=== PATIENT | male | born 1990 | race Caucasian/White ===

== ENCOUNTER → 2020-12-11 13:27 | Outpatient (CLI) | payer BC, SELFPAY | PROVIDERS: PCP Family Medicine; Visit Provider Family Medicine | DX: G47.33 Obstructive sleep apnea (adult) (pediatric) (principal); R06.83 Snoring; R53.83 Other fatigue; E66.9 Obesity, unspecified | CPT/HCPCS: G0399 ==

== ENCOUNTER → 2022-10-11 10:46 | Outpatient (CLI) | payer BC, SELFPAY | PROVIDERS: PCP Family Medicine; Visit Provider Nurse Practitioner Family | DX: M54.2 Cervicalgia (principal) ==

== ENCOUNTER 2022-11-10 09:00 | Outpatient (RCR) | payer BC, SELFPAY ==
--- NOTE | 2022-10-11 10:49 | XR_ITS ---
FINAL REPORT CLINICAL HISTORY: neck pain,,headaches FINDINGS: CERVICAL SPINE Six views including flexion and extension views were obtained. There is no acute fracture. There is no malalignment. There is no abnormal movement with flexion or extension. There is minimal disc degeneration at C5-6 and C6-7 with small osteophytes. There is no evidence of neural foraminal narrowing. There is no soft tissue abnormality. IMPRESSION: Minimal disc degeneration at C5-6 and C6-7. No abnormal movement with flexion or extension. Reviewed, Interpreted and Dictated by Erik Lawson III, MD Transcribed by Candi Ochoa Authenticated and [facility]
--- NOTE | 2022-11-10 10:00 | HMH.RHREAS ---
Rehab Reassessment Rehab OP Re-assessment Start: 11/10/22 09:53 Freq: Status: Active Protocol: Document 11/10/22 09:53 FUNMILAYO (Rec: 11/10/22 10:00 FUNMILAYO [id number]) E-signed By Fish Lechuga, PT Rehab Re-assessment Subjective Subjective Patient reports 50% improvement since start of care. Objective Objective Notes Cervical AROM: flx 52; ext 48; SBr 44; SBl 42; Rr 40: Rl 44 MMT WNL Pain: 1/10 today; 6/10 at worst over past week Assessment Progress Assessment Progressing as Expected Assessment Notes Patient had some good relief of headaches with introduction of dry needling until last week. Patient experienced increase frequency of headaches. He would benefit from continuing with skilled PT services in order to address all functional limitations associated with headaches/migraines. Patient goals met STG 2 Goals Not Met All others Revised Goals NA Plan Plan Continue with current POC. Frequency of Therapy 2 Duration of therapy 4-6 Time and Billing Re-Eval Time 15 Re-Eval Billing Units 1 PHYSICIAN CERTIFICATION: I certify the specified therapy services for Josue Anita Moura are required, authorized, and reviewed every 30 days.
== END 2022-11-10 09:05 | disposition home or self-care (01) ==
LOC: PT 09:00
PROVIDERS: PCP Family Medicine; Visit Provider Nurse Practitioner Family
DX: G43.909 Migraine, unspecified, not intractable, without status migrainosus (principal); G44.209 Tension-type headache, unspecified, not intractable; G44.86 Cervicogenic headache; M54.2 Cervicalgia
CPT/HCPCS: 20560; 20561; 72052; 97010; 97014; 97110; 97163; 97164; G0283

== ENCOUNTER → 2023-08-02 15:57 | Outpatient (CLI) | payer BC, SELFPAY | LOC: SL 16:00 | PROVIDERS: PCP Family Medicine; Visit Provider Nurse Practitioner Family | DX: G47.33 Obstructive sleep apnea (adult) (pediatric) (principal); E66.01 Morbid (severe) obesity due to excess calories; Z68.41 Body mass index [BMI] 40.0-44.9, adult | CPT/HCPCS: G0399 ==

== ENCOUNTER 2024-07-20 12:08 | Emergency (ER) | payer BC, SELFPAY ==
[2024-07-20] VITALS (9 sets, daily range): BP systolic 127–156; BP diastolic 86–108; PULSE 56–87; RESP 16–18; TEMP 36.6–36.8; O2SAT 95–100; BMI 40.6
--- NOTE | 2024-07-20 12:38 | PC.NURSE ---
Dr. Myers at [facility] for pt eval
[2024-07-20] MEDS: LACTATED RINGERS 1000ML 1,000 ML 999 ML IV (12:47)
--- NOTE | 2024-07-20 12:47 | CT_ITS ---
PROCEDURE INFORMATION: Exam: CT Abdomen And Pelvis With Contrast Exam date and time: 07/20/2024 1:05 PM Age: 34 years old Clinical indication: Abdominal pain; Additional info: Concern for acute pancreatitis TECHNIQUE: Imaging protocol: Computed tomography of the abdomen and pelvis with contrast. Radiation optimization: All CT scans at this facility use at least one of these dose optimization techniques: automated exposure control; mA and/or kV adjustment per patient size (includes targeted exams where dose is matched to clinical indication); or iterative reconstruction. Contrast material: ISOVUE; Contrast volume: 75 ml; Contrast route: IV; COMPARISON: No relevant prior studies available. FINDINGS: Liver: Unremarkable. Gallbladder and biliary ducts: Cholelithiasis without evidence of acute cholecystitis. No intra- or extra-hepatic biliary ductal dilatation. Pancreas: No evidence of acute pancreatitis. No pancreatic ductal dilation. Spleen: Unremarkable. Adrenal glands: Unremarkable. Kidneys and ureters: Unremarkable. Stomach and bowel: Colonic diverticulosis without evidence of acute diverticulitis. Appendix: No evidence of appendicitis. Intraperitoneal space: No free fluid. No pneumoperitoneum. Vasculature: Unremarkable. Lymph nodes: Unremarkable. Urinary bladder: Unremarkable. Reproductive: Unremarkable. Bones/joints: No evidence of acute osseous abnormality. Soft tissues: Unremarkable. IMPRESSION: 1. No acute findings in the abdomen or pelvis. No evidence of acute pancreatitis. 2. Cholelithiasis without evidence of acute cholecystitis. 3. Colonic diverticulosis without evidence of acute diverticulitis.
--- NOTE | 2024-07-20 12:50 | ECG_ITS ---
APPROVED REPORT Exam: Resting ECG HR:84 bpm ECG Measurements Heart Rate 84 AXES DC 124 P 39 QRSd 90 QRS 39 QT 366 T 23 QTc 407 Conclusion SINUS RHYTHM NORMAL ECG UNCONFIRMED REPORT Electronically signed by : NICOLE LORENZ, 07/21/2024 04:27:14
[2024-07-20 12:51] LABS: Albumin Level 4.8 g/dl (3.5-5.0); Basophils # 0.1 K/mm3 (0-0.2); Basophils % 0.6 % (0.1-2.0); Chloride 108 mmol/L (98-107); Eosinophils % 0.3 % (0.1-12.0); Hematocrit 51.8 % (42.0-52.0); Hemoglobin 16.6 g/dL (14.1-18.0); Lymphocytes # 1.5 K/mm3 (0.7-4.5); Lymphocytes % 12.1 % (10-50); Mean Corpuscular Hemoglobin 28.5 pg (27.0-31.2); Mean Corpuscular Volume 89.2 fl (80-94); Mean Platelet Volume 7.4 fl (7.4-10.4); Monocytes # 0.6 K/mm3 (0.1-1.0); Monocytes % 5.1 % (1.7-9.3); Neutrophils # 10.3 K/mm3 (1.8-7.8); Neutrophils % 81.9 % (37.0-80.0); Platelet Count 343 K/mm3 (142-424); Potassium 4.2 mmoL/L (3.5-5.1); Red Blood Count 5.81 M/mm3 (4.60-6.20); Red Cell Distribution Width 13.8 % (11.5-17.5); Sodium 138 mmol/L (136-145); White Blood Count 12.6 K/mm3 (4.8-10.8)
[2024-07-20 12:54] LABS: Alanine Aminotransferase 24 U/L (12-78); Albumin/Globulin Ratio 1.4 (1.1-1.8); Alkaline Phosphatase 100 U/L (38-126); Anion Gap 10.2 mEq/L (5-15); Aspartate Amino Transferase 55 U/L (17-59); Bilirubin,Total 0.8 mg/dl (0.2-1.3); Blood Urea Nitrogen 23 mg/dl (9-20); Calcium 9.2 mg/dl (8.4-10.2); Carbon Dioxide 24 mmol/L (22.0-30.0); Creatinine Clearance Estimated 170 mL/min (50-200); Estimated Glomerular Filt Rate 78 ml/min (>60); GFR (African American) 94 ML/MIN (>60); Globulin 3.5 g/dL (1.3-3.2); Glucose 105 mg/dl (74-100); Total Protein,Serum 8.3 g/dl (6.3-8.2)
[2024-07-20] MEDS: IOPAMIDOL-370 (76%);100ML BOTTLE 75 ML IV (13:05)
[2024-07-20] MEDS: SODIUM CHLORIDE 0.9% 10ML SYR (RAD ONLY) 10 ML IV (13:05)
[2024-07-20 13:16] LABS: Lipase 114 U/L (23-300)
--- NOTE | 2024-07-20 14:31 | HMH.EDGENADL ---
Discharge Plan Disposition Patient Disposition: Home, Self-Care Condition: Good Prescriptions Prescriptions: No Action montelukast 10 mg tablet 10 mg PO DAILY Pataday Once Daily Relief 0.7 % drops 1 drp Eye-Both DAILY Patient Comments: INSTIL 1 DROP INTO BOTH EYES ONCE DAILY NEEDED FOR EYE ALLERGY SYMPTOMS(TEARING, ITCHING, REDNESS) WAIT 10 MINUTES BEFORE PUTTING IN CONTACTS levothyroxine 50 mcg tablet 50 mcg PO DAILY Patient Comments: TAKE 1 TABLET BY MOUTH ONCE DAILY FOR 90 DAYS bupropion HCl 300 mg tablet extended release 24 hr 300 mg PO DAILY Patient Comments: TAKE 1 TABLET BY MOUTH EVERY 24 HOURS FOR 90 DAYS fluticasone propionate 50 mcg/actuation spray,suspension 1 spray INTRANASAL DAILY Patient Comments: USE 2 SPRAY(S) IN EACH NOSTRIL ONCE DAILY propranolol 80 mg capsule,extended release 24 hr 80 mg PO HS 90 Days Qty: 90 1RF Ubrelvy 100 mg tablet 100 mg PO .COMPLEX PRN (Reason: Migraine) Qty: 16 5RF Rx Instructions: Take 100 mg p.o. immediately at onset of headache. May repeat 100 mg after 2 hours if symptoms persist. Max dose 2 tablets in 24 hours. Referrals Follow up/Referrals: Artem Lopez MD [Primary Care Provider] - See instructions Activity Restrictions/Add. Instructions Additional Instructions/Restrictions: Please follow-up with your primary care provider. Return to ED if symptoms worsen Clinical Impressions Clinical Impression: Abdominal pain, Cholelithiasis, Diverticulosis Instructions Patient Instructions: DI for Acute Abdominal Pain Print Language Print Language: Samoan Discharge ED Provider: Mitch Myers General Adult HPI General Chief complaint: Abdominal Pain Stated complaint: abd pain, shoulder pain Time Seen by Provider: 07/20/24 12:17 Mode of Arrival: Ambulatory Source of Information: Patient and Spouse Limitations: No Limitations Description of Symptoms (Recalled from ER Triage Doc. by RN): epigastric pain radiating to shoulder blades History of Present Illness HPI narrative: 34-year-old male presents to ED with complaint of abdominal pain and left upper side as well as left shoulder pain. States that pain started this morning after he woke up. Denies significant past medical history, denies any nausea, vomiting, chest pain, back pain, other symptoms at this time including dysuria. Related Data Home Medications ?Medication ?Instructions ?Recorded ?Confirmed levothyroxine 50 mcg tablet 50 mcg PO DAILY 12/22/20 07/11/23 bupropion HCl 300 mg 24 hr tablet, 300 mg PO DAILY 08/03/21 07/11/23 extended release fluticasone propionate 50 1 spray intranasal DAILY 08/03/21 07/11/23 mcg/actuation nasal spray,suspension montelukast 10 mg tablet 10 mg PO DAILY 03/15/22 07/11/23 olopatadine 0.7 % eye drops 1 drp Eye-Both DAILY 12/07/22 07/11/23 (Pataday Once Daily Relief) Previous Rx's ?Medication ?Instructions ?Recorded propranolol 80 mg capsule,24 80 mg PO HS chronic headaches 90 07/11/23 hr,extended release days #90 caps ubrogepant 100 mg tablet (Ubrelvy) 100 mg PO .COMPLEX PRN Migraine 07/11/23 #16 tabs Allergies Allergy/AdvReac Type Severity Reaction Status Date / Time cefaclor [From [facility]] Allergy Mild Verified 07/11/23 10:01 [facility] Disclaimer: The information contained in this section may have been updated after the patient was seen, as this information can be updated by other users. Medical History Anxiety Depression Migraine TITA (obstructive sleep apnea) Treated with oral appliance, active follow-up with [facility], declines HSAT with appliance until reaches weight loss goals Seasonal allergies Thyroid disease Surgical History Hx of LASIK Family History Other Hypertension Migraine Social History Smoking Status: Current every day smoker tobacco type: e-cigarettes alcohol intake: current alcohol intake frequency: holidays/special occasions only substance use type: denies use current occupational status: employed Travel in the last 8 weeks: None household members: spouse and children housing: house ROS Obtained: Yes Systems reviewed as appropriate & no additional complaints except as documented Physical Exam General General appearance: alert and in no apparent distress Head Head exam: atraumatic and normocephalic Eye Eye exam: Present normal appearance and EOMI ENT ENT exam: Present normal exam, normal oropharynx and mucous membranes moist Neck Neck exam: Present normal inspection and trachea midline Chest Chest inspection: Present normal inspection and symmetric chest wall rise Respiratory Respiratory exam: Present normal lung sounds bilaterally; Absent respiratory distress Cardiovascular Cardiovascular exam: Present regular rate, normal rhythm and normal heart sounds Abdominal Exam Abdominal exam: Present soft, tenderness (Mild tenderness to palpation of left upper quadrant.) and normal bowel sounds; Absent distention, guarding, rebound, Garber's sign, Rovsing's sign, tenderness at McBurney's Point or pulsatile mass exam: Present deferred Extremities Exam Extremities exam: Present normal inspection and full ROM; Absent tenderness Neurological Exam Neurological exam: Present alert and oriented X3 Psychiatric Psychiatric exam: Present normal affect and normal mood Skin Skin exam: Present warm, dry, intact and normal color; Absent rash Medical Decision Making Medical Records Medical records reviewed: Yes I reviewed the patient's medical records. Lj Inquiry Pt receiving controlled substance: No Vital Signs: 07/20/24 12:09 07/20/24 12:12 07/20/24 12:15 Temperature 97.9 F Temperature Source Oral Pulse Rate 85 68 Pulse Rate [Right] 87 Respiratory Rate 18 Blood Pressure 156/108 H 154/102 H Blood Pressure [Right Arm] 156/108 H Blood Pressure Mean [Right Arm] 124 02 Sat by Pulse Oximetry 99 99 100 Oxygen Delivery Method Room Air Room Air Room Air 07/20/24 12:55 07/20/24 13:15 07/20/24 13:45 Temperature Temperature Source Pulse Rate 61 83 61 Pulse Rate [Right] Respiratory Rate Blood Pressure 139/95 H 145/92 H 143/94 H Blood Pressure [Right Arm] Blood Pressure Mean [Right Arm] 02 Sat by Pulse Oximetry 95 98 97 Oxygen Delivery Method Room Air Room Air Room Air 07/20/24 14:00 07/20/24 14:15 07/20/24 14:33 Temperature 98.2 F Temperature Source Pulse Rate 84 57 L 56 L Pulse Rate [Right] Respiratory Rate 16 Blood Pressure 135/86 127/86 127/86 Blood Pressure [Right Arm] Blood Pressure Mean [Right Arm] 02 Sat by Pulse Oximetry 96 96 Oxygen Delivery Method Room Air Room Air Lab Data Lab Results 07/20/24 12:30: WBC 12.6 H, RBC 5.81, Hgb 16.6, Hct 51.8, MCV 89.2, MCH 28.5, MCHC 32.0, RDW 13.8, Plt Count 343, MPV 7.4, Neut % (Auto) 81.9 H, Lymph % (Auto) 12.1, [place] % (Auto) 5.1, Eos % (Auto) 0.3, Baso % (Auto) 0.6, Neut # (Auto) 10.3 H, Lymph # (Auto) 1.5, [place] # (Auto) 0.6, Eos # (Auto) 0.0, Baso # (Auto) 0.1, Sodium 138, Potassium 4.2, Chloride 108 H, Carbon Dioxide 24, Anion Gap 10.2, BUN 23 H, Creatinine 1.10, Estimated Creat Clear 170, Estimated GFR 78, Est GFR ( Amer) 94, Glucose 105 H, Calcium 9.2, Total Bilirubin 0.8, AST 55, ALT 24, Alkaline Phosphatase 100, Total Protein 8.3 H, Albumin 4.8, Globulin 3.5 H, Albumin/Globulin Ratio 1.4, Lipase 114 07/20/24 12:30 07/20/24 12:30 Orders (Tests/Meds): ED MEDICATIONS Discontinued Medications Generic Name Dose Route Start Last Admin Trade Name Freq PRN Reason Stop Dose Admin Lactated Ringer's 1,000 mls @ 999 mls/hr 07/20/24 12:38 07/20/24 12:47 Lactated Ringer's 1000 Ml Bag IV 07/20/24 13:38 999 mls/hr .Q1H1M ONE Administration Iopamidol 75 ml 07/20/24 13:03 07/20/24 13:05 Iopamidol-370 (76%);100ml Bottle IV 07/20/24 13:04 75 ml ONCE ONE Administration Sodium Chloride 10 ml 07/20/24 13:03 07/20/24 13:05 Sodium Chloride 0.9% 10ml Syr (Rad Only) IV 08/19/24 13:02 10 ml NEEDED PRN Administration Maintain IV Site ORDERS Category Date Time Status CT abdomen pelvis w con Stat Cat Scan 07/20/24 12:47 Completed Complete Blood Count Auto Diff Stat Lab 07/20/24 12:30 Completed Comprehensive Metabolic Panel Stat Lab 07/20/24 12:30 Completed Lipase Stat Lab 07/20/24 12:30 Completed ECG Data Tracing #1: I reviewed this ECG and interpreted as documented below: Normal sinus rhythm, normal axis, normal intervals, no noted ST elevation Medical Decision Narrative: Patient with history and exam per above presenting for evaluation of left upper quadrant abdominal pain. Patient hemodynamically stable, no acute distress. Triage vitals show patient as bradycardic, this had improved by the time I evaluated him at bedside, normal rate and rhythm on EKG. Afebrile. Diagnoses considered include gastritis, ACS, mesenteric adenitis, viral syndrome, cholelithiasis, intra-abdominal abnormality, pancreatitis ED workup and treatment included: As above Labs were independently interpreted by me, significant for mild leukocytosis, CBC and CMP grossly nonactionable, no hypoglycemia. Lipase within normal limits. Imaging was independently visualized and interpreted by me, significant for no noted acute pathology on my review, no findings of pancreatitis. Patient does have gallstones however no noted evidence of cholecystitis. Colonic diverticulosis noted, no stranding or inflammatory process noted on my review. Please refer to radiology report for full details. My clinical impression at this time is most consistent with abdominal pain. Dispo on reassessment patient states he is feeling somewhat better. At this time medically clear for discharge with outpatient primary care follow-up. Patient instructed to return to ED if symptoms worsen. Patient agreeable with this plan. Discharged home with hemodynamically stable vitals. I discussed my clinical impression with patient and answered all questions. ?At this time, the evidence for any other entities in the differential is insufficient to warrant any further testing or ED observation. ?This was explained to the patient. ?The patient was advised that persistent or worsening symptoms require further evaluation. Critical Care Critical Care Time Critical Care Time: No
== END 2024-07-20 14:44 | disposition home or self-care (01) ==
PROVIDERS: Emergency Provider Student in an Organized Health Care Education/Training Program; PCP Family Medicine
DX: R10.13 Epigastric pain (principal); K80.20 Calculus of gallbladder without cholecystitis without obstruction; K57.90 Diverticulosis of intestine, part unspecified, without perforation or abscess without bleeding
CPT/HCPCS: 74177; 80053; 83690; 85025; 93005; 96360; 99284; J7120; Q9967

== ENCOUNTER 2024-07-25 07:12 | Outpatient (CLI) | payer BC, SELFPAY ==
--- NOTE | 2024-07-25 07:20 | US_ITS ---
FINAL REPORT CLINICAL HISTORY: EPIGASTRIC ABD PAIN/GALLSTONES COMPARISON: None FINDINGS: Sonographic images of the right upper quadrant were obtained. The pancreas is partially obscured. There is increased echogenicity in the liver consistent with fatty infiltration. There is a 2 cm gallstone present in the gallbladder without evidence of gallbladder wall thickening. There is no evidence of biliary ductal dilatation.The common duct measures 3 mm. Limited images of the right kidney are unremarkable. IMPRESSION: Large gallstone present in the gallbladder without evidence of wall thickening or biliary ductal dilatation. Fatty infiltration of the liver. Reviewed, Interpreted and Dictated by Brett Tavarez MD Transcribed by Kori Merida Authenticated and [facility]
== END 2024-07-25 23:59 | disposition home or self-care (01) ==
PROVIDERS: PCP Family Medicine; Visit Provider Family Medicine
DX: R10.13 Epigastric pain (principal); K80.20 Calculus of gallbladder without cholecystitis without obstruction
CPT/HCPCS: 76705

== ENCOUNTER 2025-05-01 08:48 | Outpatient (CLI) | payer BC, SELFPAY ==
--- OUTSIDE RECORDS SUMMARY | 2024-08-15 11:30 | XMS_ITS ---
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 Name Role Phone John Artem Primary Care Provider Allergies Allergen (clinical drug ingredient) Drug/Non Drug Allergy documented on EMR Reaction Allergy Type Onset Date Status cefaclor Cefaclor Unknown Drug Allergy Active Results Component Value Reference Range Notes P-Comprehensive Metabolic Pa mary (CMP) Reviewed date:08/18/2024 11:25:21 AM Interpretation:bun 21 Performing Lab: Notes/Report: Test performed by [facility] [address] [place] [address] , [address], [place] [address] David Mendiola MD, Ditch Worker CLIA: [id number] Sodium 142 135-145 mmol/L Potassium 3.8 3.5-5.3 mmol/L Chloride 103 97-108 mmol/L CO2 26 22-32 mmol/L Glucose 96 65-99 mg/dL BUN 21 6-20 mg/dL Creatinine 1.26 0.70-1.30 mg/dL Calcium 9.3 8.6-10.4 mg/dL eGFR by Creatinine 78 >59 mL/min/1.73m2 Protein 6.9 6.0-8.3 g/dL Albumin 4.3 3.5-5.3 g/dL Alkaline Phosphatase 77 40-129 IU/L ALT (SGPT) 16 <5-55 IU/L AST (SGOT) 13 <5-46 IU/L Bilirubin, Total 0.3 <0.2-1.2 mg/dL A/G Ratio 1.7 1.1-2.5 P-Lipid Panel Reviewed date:08/18/2024 11:25:21 AM Interpretation:trigs 229, hdl 31, chol/hdl 5.06 Performing Lab: Notes/Report: Test performed by [facility] [address] , [address], [place] [address] David Mendiola MD, Ditch Worker CLIA: [id number] Cholesterol 157 <200 mg/dL Triglycerides 229 <150 mg/dL HDL Cholesterol 31 >39 mg/dL Cholesterol / HDL Ratio 5.06 0.00-4.99 Ratio Non-HDL Cholesterol 126 <130 mg/dL LDL Cholesterol (Calculation) 80 <130 mg/dL LDL Cholesterol Levels* Less than 100 mg/dL Optimal 100 to 129 mg/dL Near Optimal/ Above Optimal 130 to 159 mg/dL Borderline High 160 to 189 mg/dL High 190 mg/dL and above Very High * Categories as recommended by the 2004 ATPIII guidelines LDL/HDL Ratio 2.6 <3.3 Ratio LDL Cholesterol Patient History Test Date: 02/16/2024 LDL Results: 97 Units: mg/dL % Change: - Test Date: 08/15/2024 LDL Results: 80 Units: mg/dL % Change: -17% REASON FOR VISIT 6 month check Medications Medication SIG (Take, Route, Frequency, Duration) Notes Start Date End Date Status valACYclovir HCl 1 GM 2 tab(s) orally 2 times a day 08/02/2021 Active Ubrelvy 100 MG 1 tab(s) orally once , may repeat dose in 2 hours if needed 08/02/2021 Active Xyzal Allergy 24HR 5 MG 1 tablet in the evening Orally Once a day; Duration: 30 day(s) Active Flonase Allergy Relief 50 MCG/ACT 1 spray(s) intranasally once a day; Duration: 30 day(s) Active Wellbutrin XL 300 MG 1 tab(s) orally evy ry 24 hours; Duration: 90 days Active Synthroid 50 MCG 1 tab(s) orally once a day; Duration: 90 days Active Montelukast Sodium 10 MG 1 tab(s) orally once a day; Duration: 30 day(s) Active Social History Tobacco Use: Social History Observation Description Date Smoking Status WARNING: Information temporarily unavailable CURRENT TOBACCO USE: Question Answer Notes Are you a: smokeless, start ed at age 17, 1/2 can daily Problems Problem Type SNOMED Code ICD Code Onset Dates Problem Status W/U Status Risk Notes Problem Hypertriglyceridemia (345174391) Hypertriglyceridemia (E78.1) Active confirmed Vital Signs Blood pressure systolic 130 mm Hg 08/15/20 24 Blood pressure diastolic 70 mm Hg 024 Heart Rate 78 /min 08/15/2024 Height 70 in 08/15/2024 Weight 278 lbs 08/15/2024 BMI 39.88 kg/m2 08/15/2024 Encounters Encounter Location Date Provider Diagnosis [facility] [address] [place], [place] [id number] 08/15/2024 Artem [place] Hypertriglyceridemia E78.1 ; Gallstones K80.20 ; Acquired hypothyroidism E03.9 and Depressive disorder F32.9 Assessments Encounter Date Diagnosis (ICD Code) Assessment Notes Treatment Notes Treatment Clinical Notes Section Notes 08/15/2024 Hypertriglyceridemia (ICD-10 - E78.1) 08/15/2024 Gallstones (ICD-10 - K80.20) 08/15/2024 Acquired hypothyroid ism (ICD-10 - E03.9) 08/15/2024 Depressive disorder (ICD-10 - F32.9) Plan Of Treatment Medication Medication Name Sig Start Date Stop Date Notes Wellbutrin XL 300 MG 1 tab(s) orally evy ry 24 hours; Duration: 90 days Synthroid 50 MCG 1 tab(s) orally once a day; Duration: 90 days Next Appt Details Follow Up: 6 Months, Reason: Provider Name:Artem Oseguera ry, 05/15/2025 04:00:00 PM, [address] [facility] [address], [address], [place], [place], [id number], Progress Notes * CHARLENE RUSSELLOB:1990 (35 yo M)Acc No.[id number]:08/15/2024 Progress Notes Patient: SHABNAM TATE Provider: Anita Lopez M.D. :1990 A ge:34 Y S ex:Male Date:08/15/2024 Address:[address] [place] [address] [address] [facility] Subjective: * Chief Complaints: * 1 . 6 month check. * HPI: E ndocrinology: 34 year old male presents with c/o Hypothyroidism P t here to f/u. States he is doing well and does not have any concerns today. C ardiology: c/o Hyperlipidemia P t is fasting today. * ROS: C ARDIOLOGY: no D izziness. n o C hest pain. D ERMATOLOGY: no R christie. n o H pallavi. U ROLOGY: no D ifficulty urinating. n o B lood in urine. * Medical History: H ypothyroidism, Allergic Rhinitis, Depression, Herpes Labialis. * Hospitalization/Major Diagno stic Procedure: C hildhood - Bronchitis . * Family History: F ather: alive. M other: alive, diagnosed with Hypertension. S iblings: alive, depression, diagnosed with Hypertension, Mental Illness. C hildren: alive. 1 brother(s) - healthy. 1 son(s) , 1 daughter(s) - healthy. . * Social History: C URRENT TOBACCO USE: Yes A re you a: smokeless, started at age 17, 1/2 can daily.? * Medications: T aking Xyzal Allergy 24HR 5 MG Tablet 1 tablet in the evening Orally Once a day , Taking Montelukast Sodium 10 MG Tablet 1 tab(s) orally once a day , Taking Flonase Allergy Relief 50 MCG/ACT Suspension 1 spray(s) intranasally once a day , Taking Ubrelvy 100 MG Tablet 1 tab(s) orally once, may repeat dose in 2 hours if needed , Taking valACYclovir HCl 1 GM Tablet 2 tab(s) orally 2 times a day , Taking Wellbutrin XL 300 MG Tablet Extended Release 24 Hour 1 tab(s) orally every 24 hours , Taking Synthroid 50 MCG Tablet 1 tab(s) orally once a day , Discontinued Cetirizine HCl 10 MG Tablet 1 tab(s) orally once a day , Medication List reviewed and reconciled with the patient * Allergies: C efaclor. Objective: * Vitals: W t:278, Temp:97.9, BP:130/70, HR:78, Nurse:blayne, Ht: 70, BMI:39.88. * Examination: P sychology: General Appearance: N AD. G rooming : a dequate.?Eye contact : n ormal. M ood : p leasant. H eart: R SR. L ungs: c lear to auscultation. Assessment: * Assessment: 1. H ypertriglyceridemia - E78.1 (Primary) 2 . G allstones - K80.20 ? 3 . A cquired hypothyroidism - E03.9 4 . D epressive disorder - F32.9 Plan: * Treatment: Value Reference Range C holesterol / HDL Ratio 5.06 H 0.00-4.99 - Ratio * C holesterol 157 <200 - mg/dL * H DL Cholesterol 31 L >39 - mg/dL * L DL Cholesterol (Calculation) 80 <130 - mg/d L * L DL/HDL Ratio 2.6 <3.3 - Ratio * N on-HDL Cholesterol 126 <130 - mg/dL * T riglycerides 229 H <150 - mg/dL * Tequila Moody 08/18/2024 11:2 5:14 AM >See phone encounter 2.?Gallstones?LAB: P-Comprehensive Metabolic Panel (CMP) (Collection Date & Time - 08/15/2024 02:38 PM)?bun 21* Value Reference Range A /G Ratio 1.7 1.1-2.5 - * A lbumin 4.3 3.5-5.3 - g/dL * A lkaline Phosphatase 77 40-129 - IU/L * A LT (SGPT) 16 <5-55 - IU/L * A ST (SGOT) 13 <5-46 - IU/L * B ilirubin, Total 0.3 <0.2-1.2 - mg/dL * B UN 21 H 6-20 - mg/dL * C alcium 9.3 8.6-10.4 - mg/dL * C hloride 103 97-108 - mmol/L * C O2 26 22-32 - mmol/L * C reatinine 1.26 0.70-1.30 - mg/dL * G lucose 96 65-99 - mg/dL * P otassium 3.8 3.5-5.3 - mmol/L * S odium 142 135-145 - mmol/L * P rotein 6.9 6.0-8.3 - g/dL * e GFR by Creatinine 78 >59 - mL/min/1.73m2 * Tequila Moody 08/18/2024 11:2 5:14 AM >See phone encounter 3.?Acquired hypothyroidism? Refill Synthroid Tablet, 50 MCG, 1 tab(s), orally, once a day, 90 days, 90, Refills 1.??4.?Depressive disorder? Refill Wellbutrin XL Tablet Extended Release 24 Hour, 300 MG, 1 tab(s), orally, every 24 hours, 90 days, 90, Refills 1.?? * Follow Up: 6 Months * Images: Billing Information: * Visit Code: 99688 Office Visit, Est Pt., Level 4. * Procedure Codes: * Electronic signature of Airam Lopez MD on 05/01/2025 at 08:52 AM EDT Sign off status: Pending * Provider: Anita Lopez M.D. Date: Generated for Cami mcgovern/Rita/eTransmitting on: 0 05/01/2025 08:52 AM EDT History and Physical Notes * HPI (History of Present Illness) Category Sub-Category Detail Notes Category Not es Endocrinology Hypothyroidism Pt here to f/u. States he is doing well and does not have any concerns today Cardiology Hyperlipidemia Pt is fasting today Examination Category Sub-Category Detail Notes Category Not es Psychology Heart: RSR Lungs: clear to auscultatio n General Appearance: NAD Grooming : adequate Eye contact : normal Mood : pleasant
--- OUTSIDE RECORDS SUMMARY | 2025-02-13 12:00 | XMS_ITS ---
[facility] Organization [facility] Address [address] [place] [id number] Care Team Providers Care Manager Retirement Name Role Phone Artem Lopez Primary Care Provider Allergies Allergen (clinical drug ingredient) Drug/Non Drug Allergy documented on EMR Reaction Allergy Type Onset Date Status cefaclor Cefaclor Unknown Drug Allergy Active REASON FOR VISIT 6 month f/u Medications Medication SIG (Take, Route, Frequency, Duration) Notes Start Date End Date Status Montelukast Sodium 10 MG 1 tab(s) orally once a day; Duration: 30 day(s) Active Flonase Allergy Relief 50 MCG/ACT 1 spray(s) intranasally once a day; Duration: 30 day(s) Active Wegovy 0.25 MG/0.5ML 0.5 ml Subcutaneous once weekly samples given 02/18/2025 Active valACYclovir HCl 1 GM 2 tab(s) orally 2 times a day 08/02/2021 Active Ubrelvy 100 MG 1 tab(s) orally once , may repeat dose in 2 hours if needed 08/02/2021 Active Wellbutrin XL 300 MG 1 tab(s) orally evy ry 24 hours; Duration: 90 days Active Xyzal Allergy 24HR 5 MG 1 tablet in the evening Orally Once a day; Duration: 30 day(s) Active Synthroid 50 MCG 1 tab(s) orally once a day Active Social History Tobacco Use: Social History Observation Description Date Smoking Status WARNING: Information temporarily unavailable CURRENT TOBACCO USE: Question Answer Notes Are you a: smokeless, start ed at age 17, 1/2 can daily Vital Signs Blood pressure systolic 130 mm Hg 02/14/20 25 Blood pressure diastolic 74 mm Hg 025 Heart Rate 94 /min 02/13/2025 Height 70 in 02/13/2025 Weight 273.4 lbs 02/13/2025 BMI 39.22 kg/m2 02/13/2025 Encounters Encounter Location Date Provider Diagnosis [facility] [address] [facility] [address] [facility] [address] [place] [id number] 02/13/2025 Artem Lopez Acquired hypothyroid ism E03.9 ; Hypertriglyceridemia E78.1 ; Migraine without status migrainosus, not intractable, unspecified migraine type G43.909 and Non morbid obesity E66.9 Assessments Encounter Date Diagnosis (ICD Code) Assessment Notes Treatment Notes Treatment Clinical Notes Section Notes 02/13/2025 Acquired hypothyroid ism (ICD-10 - E03.9) 02/13/2025 Hypertriglyceridemia (ICD-10 - E78.1) 02/13/2025 Migraine without sta tus migrainosus, not intractable, unspecified migraine type (ICD-10 - G43.909) 02/13/2025 Non morbid obesity (ICD-10 - E66.9) 02/13/2025 Other Patient will return for the following fasting labs: CMP, TSH, free T4, & Lipid Plan Of Treatment Medication Medication Name Sig Start Date Stop Date Notes Wegovy 0.25 MG/0.5ML 0.5 ml Subcutaneous once weekly 02/18/2025 samples given Ubrelvy 100 MG 1 tab(s) orally once , may repeat dose in 2 hours if needed 08/02/2021 Synthroid 50 MCG 1 tab(s) orally once a day Treatment Notes Assessment Notes Other Patient will return for the following fasting labs: CMP, TSH, free T4, & Lipid Next Appt Details Follow Up: 6 Months, Reason: Provider Name:Artem Oseguera ry, 05/15/2025 04:00:00 PM, [address] [facility] [address] [facility], [address], [place], [phone], Progress Notes * CHARLENE RUSSELLOB:1990 (35 yo M)Acc No.[id number]:02/13/2025 Progress Notes Patient: SHABNAM TATE Provider: Anita Lopez M.D. :1990 A ge:34 Y S ex:Male Date:02/13/2025 Address:[address], [place], [id number] Subjective: * Chief Complaints: * 1 . 6 month f/u. * HPI: H PI: 34 year old male presents with c/o Patient is here today for?Pt is here today for a 6 month check up. Pt sts he is doing well and has no concerns at this time. * ROS: D ERMATOLOGY: no R christie. n o H pallavi. G ASTROENTEROLOGY: no N ausea. n o V omiting. U ROLOGY: no D ifficulty urinating. n o B lood in urine. * Medical History: H ypothyroidism, Allergic Rhinitis, Depression, Herpes Labialis. * Surgical History: D enies Past Surgical History. * Hospitalization/Major Diagno stic Procedure: C kenna - Bronchitis . * Family History: F ather: alive. M other: alive, diagnosed with Hypertension. S iblings: alive, depression, diagnosed with Hypertension, Mental Illness. C hildren: alive. 1 brother(s) - healthy. 1 son(s) , 1 daughter(s) - healthy. . * Social History: C URRENT TOBACCO USE: Yes A re you a: smokeless, started at age 17, 1/2 can daily.? * Medications: T aking Synthroid 50 MCG Tablet 1 tab(s) orally once a day , Taking Wellbutrin XL 300 MG Tablet Extended Release 24 Hour 1 tab(s) orally every 24 hours , Taking Xyzal Allergy 24HR 5 MG Tablet 1 [...] tab(s) orally 2 times a day , Medication List reviewed and reconciled with the patient * Allergies: C efaclor. Objective: * Vitals: W t: 273.4, Temp: 98.6, BP: 130/74, HR: 94, Nurse: [facility], Ht: 70, BMI:39.22. * Examination: E ndocrinology: General Appearance: N AD. H EENT: u nremarkable.?Thyroid exam: n o enlargement. H eart: R SR. L ungs: c lear to auscultation.? Assessment: * Assessment: 1. A cquired hypothyroidism - E03.9 (Primary) 2 . H ypertriglyceridemia - E78.1 3 . M igraine without status migrainosus, not intractable, unspecified migraine type - G43.909 4 . N on morbid obesity - E66.9 Plan: * Treatment: 2. M igraine without status migrainosus, not intractable, unspecified migraine type Refill Ubrelvy Tablet, 100 MG, 1 tab(s), orally, once, may repeat dose in 2 hours if needed, 10, Refills 3. 3. N on morbid obesity Start Wegovy Solution Auto-injector, 0.25 MG/0.5ML, 0.5 ml, Subcutaneous, once weekly, Notes to Pharmacist: samples given. 4. O thers Notes: Patient will return for the following fasting labs: CMP, TSH, free T4, & Lipid ? * Procedure Codes: 3 075F SYST BP GE 130 - 139MM HG, 3078F DIAST BP < 80 MM HG * Follow Up: 6 Months * Images: Billing Information: * Visit Code: 77221 Office Visit, Est Pt., Level 4. * Procedure Codes: 3075F SYST BP GE 130 - 139MM HG. 3078F DIAST BP < 80 MM HG. * Electronic signature of Airam Lopez MD on 05/01/2025 at 08:52 AM EDT Sign off status: Pending * Provider: Anita Lopez M.D. Date: 0 02/13/2025 Generated for Cami mcgovern/Rita/Dominic on: 0 05/01/2025 08:52 AM EDT History and Physical Notes * HPI (History of Present Illness) Category Sub-Category Detail Notes Category Not es HPI Patient is here today for Pt is here today for a 6 month check up. Pt sts he is doing well and has no concerns at this time Examination Category Sub-Category Detail Notes Category Not es Endocrinology HEENT: unremarkable Heart: RSR Lungs: clear to auscultatio n General Appearance: NAD Thyroid exam: no enlargement
--- OUTSIDE RECORDS SUMMARY | 2025-02-14 04:45 | XMS_ITS ---
Author Organization [facility] Address [address] [place] [phone] Care Team Providers Care Animal Nutritionist Name Role Phone JohnValerieArtem Primary Care Provider Results Component Value Reference Range Notes P-Comprehensive Metabolic Pa mary (CMP) Reviewed date:02/16/2025 03:03:24 PM Interpretation: Performing Lab: Notes/Report: Test performed by [facility], [address] , [address], [place] [address] David Mendiola MD, It Director CLIA: [id number] Sodium 144 135-145 mmol/L Potassium 4.3 3.5-5.3 mmol/L Chloride 106 97-108 mmol/L CO2 25 22-32 mmol/L Glucose 88 65-99 mg/dL BUN 15 6-20 mg/dL Creatinine 1.27 0.70-1.30 mg/dL Calcium 9.3 8.6-10.4 mg/dL eGFR by Creatinine 77 >59 mL/min/1.73m2 Protein 6.8 6.0-8.3 g/dL Albumin 4.3 3.5-5.3 g/dL Alkaline Phosphatase 83 40-129 IU/L ALT (SGPT) 31 <5-55 IU/L AST (SGOT) 18 <5-46 IU/L Bilirubin, Total 0.4 <0.2-1.2 mg/dL A/G Ratio 1.7 1.1-2.5 P-T4 Free (thyroxine) Reviewed date:02/16/2025 03:03:24 PM Interpretation: Performing Lab: Notes/Report: Test performed by [facility] [address] [place] [address] [address], [place] [address] David Mendiola MD, It Director CLIA: [id number] Thyroxine Free (free T4) 1.11 0.86-1.76 ng/dL P-Lipid Panel Reviewed date:02/16/2025 03:03:24 PM Interpretation:non-hdl 136 Performing Lab: Notes/Report: Test performed by [facility] [address] [place] [address] [address], [place] [address] David Mendiola MD, It Director CLIA: [id number] Cholesterol 178 <200 mg/dL Triglycerides 132 <150 mg/dL HDL Cholesterol 42 >39 mg/dL Cholesterol / HDL Ratio 4.24 0.00-4.99 Ratio Non-HDL Cholesterol 136 <130 mg/dL LDL Cholesterol (Calculation) 110 <130 mg/dL LDL Cholesterol Levels* Less than [...] Results: 80 Units: mg/dL % Change: -17% Test Date: 02/14/2025 LDL Results: 110 Units: mg/dL % Change: +37% P-TSH Reviewed date:02/16/2025 03:03:24 PM Interpretation:7.42 Performing Lab: Notes/Report: Test performed by [facility], [address] , [address], [place] [address] David Mendiola MD, It Director CLIA: [id number] TSH 7.42 0.43-5.25 mU/L REASON FOR VISIT blood work Medications Medication SIG (Take, Route, Frequency, Duration) Notes Start Date End Date Status Synthroid 50 MCG 1 tab(s) orally once a day; Duration: 90 days Active Montelukast Sodium 10 MG 1 tab(s) orally once a day; Duration: 30 day(s) Active Xyzal Allergy 24HR 5 MG 1 tablet in the evening Orally Once a day; Duration: 30 day(s) Active Wellbutrin XL 300 MG 1 tab(s) orally evy ry 24 hours; Duration: 90 days Active Ubrelvy 100 MG 1 tab(s) orally once , may repeat dose in 2 hours if needed 08/02/2021 Active Flonase Allergy Relief 50 MCG/ACT 1 spray(s) intranasally once a day; Duration: 30 day(s) Active valACYclovir HCl 1 GM 2 tab(s) orally 2 times a day 08/02/2021 Active Encounters Encounter Location Date Provider Diagnosis [facility] [address] [facility] 36 [facility] [address] [place] [phone] [facility]/14[facility]20[facility] Acquired hypothyroid ism E03.9 ; Hypertriglyceridemia E78.1 and Non morbid obesity E66.9 Assessments Encounter Date Diagnosis (ICD Code) Assessment Notes Treatment Notes Treatment Clinical Notes Section Notes 02/14/2025 Acquired hypothyroid ism (ICD-10 - E03.9) 02/14/2025 Hypertriglyceridemia (ICD-10 - E78.1) 02/14/2025 Non morbid obesity (ICD-10 - E66.9) Plan Of Treatment Next Appt Details Provider Name:Artem T Oumar ry, 05/15/2025 04:00:00 PM, [address] [facility] [address] [facility], [address], [place], [id number], Progress Notes * CHARLENE RUSSELLOB:1990 (35 yo M)Acc No.[id number]:02/14/2025 Patient: PAPO TATEAN Provider: Anita Lopez M.D. :1990 A ge:34 Y S ex:Male Date:02/14/2025 Address:[address] [place] [address], [place] [id number] Subjective: * Chief Complaints: * 1 . Blood work. * Medical History: * Medications: T aking Synthroid 50 MCG [...] spray(s) intranasally once a day , Taking valACYclovir HCl 1 GM Tablet 2 tab(s) orally 2 times a day , Taking Ubrelvy 100 MG Tablet 1 tab(s) orally once, may repeat dose in 2 hours if needed , Medication List reviewed and reconciled with the patient Objective: * Vitals: Assessment: * Assessment: 1. A cquired hypothyroidism - E03.9 2 . H ypertriglyceridemia - E78.1 ? 3 . N on morbid obesity - E66.9 Plan: * Treatment: Value Reference Range T hyroxine Free (free T4) 1.11 0.86-1.76 - ng/d L * Lor Alvarado 02/16/2025 03: 03:15 PM > see phone encounter ?LAB: P-TSH (Collection Date & Time - 02/14/2025 07:59 AM)?7.42* Value Reference Range T SH 7.42 H 0.43-5.25 - mU/L * Lor Alvarado 02/16/2025 03: 03:15 PM > see phone encounter 2.?Hypertriglyceridemia?LAB: P-Lipid Panel (Collection Date & Time - 02/14/2025 07:59 AM)?non-hdl 136* Value Reference Range C holesterol / HDL Ratio 4.24 0.00-4.99 - Ratio * C holesterol 178 <200 - mg/dL * H DL Cholesterol 42 >39 - mg/dL * L DL Cholesterol (Calculation) 110 <130 - mg/d L * L DL/HDL Ratio 2.6 <3.3 - Ratio * N on-HDL Cholesterol 136 H <130 - mg/dL * T riglycerides 132 <150 - mg/dL * Lor Alvarado 02/16/2025 03: 03:15 PM > see phone encounter 3.?Non morbid obesity?LAB: P-Comprehensive Metabolic Panel (CMP) (Collection Date & Time - 02/14/2025 07:59 AM)* Value Reference Range A /G Ratio 1.7 1.1-2.5 - * A lbumin 4.3 3.5-5.3 - g/dL * A lkaline Phosphatase 83 40-129 - IU/L * A LT (SGPT) 31 <5-55 - IU/L * A ST (SGOT) 18 <5-46 - IU/L * B ilirubin, Total 0.4 <0.2-1.2 - mg/dL * B UN 15 6-20 - mg/dL * C alcium 9.3 8.6-10.4 - mg/dL * C hloride 106 97-108 - mmol/L * C O2 25 22-32 - mmol/L * C reatinine 1.27 0.70-1.30 - mg/dL * G lucose 88 65-99 - mg/dL * P otassium 4.3 3.5-5.3 - mmol/L * S odium 144 135-145 - mmol/L * P rotein 6.8 6.0-8.3 - g/dL * e GFR by Creatinine 77 >59 - mL/min/1.73m2 * Lor Alvarado 02/16/2025 03: 03:15 PM > see phone encounter * Images: Billing Information: * Visit Code: * Procedure Codes: * Electronic signature of Airam Lopez MD on 05/01/2025 at 08:51 AM EDT Sign off status: Pending * Provider: Anita Lopez M.D. Date: 0 02/14/2025 Generated for Cami mcgovern/Rita/eTransmitting on: 0 05/01/2025 08:51 AM EDT
--- OUTSIDE RECORDS SUMMARY | 2025-05-01 08:52 | XMS_ITS | Patient Health Record ---
[facility] Address [address] [place] [phone] Care Team Providers Care Horseradish Grinder Name Role Phone Valerie Lopezian Primary Care Provider [phone] Allergies Allergen (clinical drug ingredient) Drug/Non Drug Allergy documented on EMR Reaction Allergy Type Onset Date Status cefaclor Cefaclor Unknown Drug Allergy Active Results Component Value Reference Range Notes P-Comprehensive Metabolic Pa mary (CMP) Reviewed date:02/16/2025 03:03:24 PM Interpretation: Performing Lab: Notes/Report: Test performed by [facility], [employer] [address] [place] [address] , [address], [place] [address] David Mendiola MD, Glass Beveler CLIA: [id number] Sodium 144 135-145 mmol/L Potassium 4.3 3.5-5.3 [...] Interpretation: Performing Lab: Notes/Report: Test performed by [facility] [address] [place] [address] [place] [address] David Mendiola MD, Glass Beveler CLIA: [id number] Thyroxine Free (free T4) 1.11 0.86-1.76 ng/dL P-Lipid Panel Reviewed date:02/16/2025 03:03:24 PM Interpretation:non-hdl 136 Performing Lab: Notes/Report: Test performed by [facility] [address] [place] [address] [address], [place] [address] David Mendiola MD, Glass Beveler CLIA: [id number] Cholesterol 178 <200 mg/dL Triglycerides 132 <150 [...] Interpretation:7.42 Performing Lab: Notes/Report: Test performed by [facility] [address] [place], [place] [address] [place] , [address], [place] [address] David Mendiola MD, Glass Beveler CLIA: [id number] TSH 7.42 0.43-5.25 mU/L Ultrasound : Right Upper Sal drant Reviewed date:07/29/2024 10:18:21 AM Interpretation:Gallstones Performing Lab: Notes/Report: Gallstones P-Lipid Panel Reviewed date:08/18/2024 11:25:21 AM Interpretation:trigs 229, hdl 31, chol/hdl 5.06 Performing Lab: Notes/Report: Test performed by [facility] [address] [place], [place] [address] [place] , [place] [address] David Mendiola MD, Glass Beveler CLIA: [id number] Cholesterol 157 <200 mg/dL Triglycerides 229 <150 [...] Results: 80 Units: mg/dL % Change: -17% P-Comprehensive Metabolic Pa mary (CMP) Reviewed date:08/18/2024 11:25:21 AM Interpretation:bun 21 Performing Lab: Notes/Report: Test performed by [facility] , [address] , [place] [address] David Mendiola MD, Glass Beveler CLIA: [id number] Sodium 142 135-145 mmol/L Potassium 3.8 3.5-5.3 [...] 0.3 <0.2-1.2 mg/dL A/G Ratio 1.7 1.1-2.5 Reason For Referral Reason patient needs consul t after RUQ US Diagnosis 1 Gallstones (K80.20) Referral Organization [facility] Referring Provider First Name Artem Referring Provider Last Name John Referring Provider Speciality Family Pra ctice Referred Provider Gastroenterology, . Referred Provider Specialty Gastroentero logy General Notes Effie Kruse 07/28/20 24 2:45:31 PM > [facility] 3:51:48 PM > patient called and asked to be scheduled with Dr. Angel; appt time is 03/18/2025 at 03:00pm Referral Priority Routine Medications Medication SIG (Take, Route, Frequency, Duration) Notes Start Date End Date Status Synthroid 50 MCG 1 tab(s) orally once a day; Duration: 90 days Active Wegovy 1 MG/0.5ML 0.5 mL Subcutaneous once a week; Duration: 30 days 04/08/2025 Active Flonase Allergy Relief 50 MCG/ACT 1 spray(s) intranasally once a day; Duration: 30 day(s) Active Montelukast Sodium 10 MG 1 tab(s) [...] in 2 hours if needed 08/02/2021 Active valACYclovir HCl 1 GM 2 tab(s) orally 2 times a day 08/02/2021 Active Immunizations Vaccine Route Administration Date Status Comme nts DT, 7 YEARS OR OLDER Unknown 04/01/2019 Administered DT, 7 YEARS OR OLDER Unknown 04/01/2019 Administered Hepatitis A (adult) Unknown 04/12/2018 Administered Hepatitis A (adult) Unknown 04/01/2019 Administered Tetanus Tdap-Adacel (over 7yrs) Unknown 05/14/2007 Admi nistered Social History Tobacco Use: Social History Observation Description Date Smoking Status WARNING: Information temporarily unavailable CURRENT TOBACCO USE: Question Answer Notes Are you a: smokeless, start ed at age 17, 1/2 can daily Problems Problem Type SNOMED Code ICD Code Onset Dates Problem Status W/U Status Risk Notes Problem Morbid obesity (721642707) Morbid obesity (E66.01) Active confirmed Problem Hypertriglyceridemia (293224435) Hypertriglyceridemia (E78.1) Active confirmed Problem Depressive disorder (05964809) Depressive disorder (F32.9) Active confirmed Problem Acquired hypothyroidism (641995612) Acquired hypothyroidism (E03.9) Active confirmed Problem Migraine (78434784) Migraine wit hout status migrainosus, not intractable, unspecified migraine type (G43.909) Active confirmed Problem Obesity (353357163) Non morbid o besity (E66.9) Active confirmed Problem Gallstones (999464647) Gallstones (K80.20) Active confirmed Problem Allergic rhinitis (44335781) Non-seasonal allergic rhinitis, unspecified trigger (J30.89) Active confirmed Problem Allergic rhinitis (72055869) Allergic rhinitis, unspecified seasonality, unspecified trigger (J30.9) Active confirmed Problem Allergic rhinitis (27138264) Acute allergic rhinitis (J30.9) Active confirmed Vital Signs Heart Rate 94 /min 02/13/2025 Blood pressure diastolic 74 mm Hg 02/13/2025 Height 70 in 02/13/2025 Blood pressure systolic 130 mm Hg 02/13/2025 Weight 273.4 lbs 02/13/2025 BMI 39.22 kg/m2 02/13/2025 Encounters Encounter Location Date Provider Diagnosis [facility] [address] [place], [place] [phone] 07/21/2024 Artem [place] Epigastric abdominal pain R10.13 and Gallstones K80.20 [facility] [address] [facility] [address] [place], [place] [phone] 08/15/2024 Artem [place] Hypertriglyceridemia E78.1 ; Gallstones K80.20 ; Acquired hypothyroidism E03.9 and Depressive disorder F32.9 [facility] [address] [facility] [address] [place], [place] [phone] 02/13/2025 Artem [place] Acquired hypothyroid ism E03.9 ; Hypertriglyceridemia E78.1 ; Migraine without status migrainosus, not intractable, unspecified migraine type G43.909 and Non morbid obesity E66.9 [facility] [address] [facility] [address] [place], [place] [phone] 02/14/2025 Artem [place] Acquired hypothyroid ism E03.9 ; Hypertriglyceridemia E78.1 and Non morbid obesity E66.9 [facility] [address] [facility] [address] [place] [phone] 08/18/2024 Artem [place] [facility] [address] [facility] [address] [place] [phone] 02/16/2025 Artem [place] Migraine without sta tus migrainosus, not intractable, unspecified migraine type G43.909 [facility] [address] [facility] [address] [place] [id number] 02/16/2025 Artem [place] [facility] [address] [facility] [address] [place], [place] [id number] 03/17/2025 Artem [place] Recurrent herpes lab ialis B00.1 [facility] [address] [facility] [address] [place], [place] [phone] 04/08/2025 Artem [place] Assessments Encounter Date Diagnosis (ICD Code) Assessment Notes Treatment Notes Treatment Clinical Notes Section Notes 07/21/2024 Epigastric abdominal pain (ICD-10 - R10.13) 07/21/2024 Gallstones (ICD-10 - K80.20) 08/15/2024 Hypertriglyceridemia (ICD-10 - E78.1) 08/15/2024 Gallstones (ICD-10 - K80.20) 02/13/2025 Hypertriglyceridemia (ICD-10 - E78.1) 02/13/2025 Acquired hypothyroid ism (ICD-10 - E03.9) 02/16/2025 Migraine without sta tus migrainosus, not intractable, unspecified migraine type (ICD-10 - G43.909) 03/17/2025 Recurrent herpes labialis (ICD-10 - B00.1) 02/14/2025 Acquired hypothyroid ism (ICD-10 - E03.9) 08/15/2024 Acquired hypothyroid ism (ICD-10 - E03.9) 02/13/2025 Migraine without sta tus migrainosus, not intractable, unspecified migraine type (ICD-10 - G43.909) 02/13/2025 Non morbid obesity (ICD-10 - E66.9) 02/14/2025 Hypertriglyceridemia (ICD-10 - E78.1) 08/15/2024 Depressive disorder (ICD-10 - F32.9) 02/14/2025 Non morbid obesity (ICD-10 - E66.9) 07/21/2024 Other ER reports including labs and CT scan reviewed in office today 02/13/2025 Other Patient will return for the following fasting labs: CMP, TSH, free T4, & Lipid Plan Of Treatment Next Appt Details Provider Name:Artem Oseguera , 05/15/2025 04:00:00 PM, [address] [facility], [address], [place], [place], [id number], Insurance Providers Payer Name Payer Address Payer Phone Subscriber Number Group Number Insured Name Patient Relationship to Insured Coverage Start Date Coverage End Date [facility] [address] [place] [address] [id number] SHABNAM RUSSELL Self - patient is the insured Medications Administered Medication Instructions Date of Administration Dosage Notes allergy 11/24/2019 0.30 mL allergy 11/24/2019 0.30 mL allergy 11/26/2019 0.35 mg allergy 11/26/2019 0.35 mg allergy 12/03/2019 0.40 mg allergy 12/03/2019 0.40 mg allergy 12/08/2019 0.45 mL allergy 12/08/2019 0.45 mL allergy 12/11/2019 0.5 mL allergy 12/11/2019 0.5 mL allergy 12/18/2019 .05 allergy 12/18/2019 0.05 allergy 12/26/2019 0.10 mL allergy 12/26/2019 0.10 mL allergy 01/02/2020 0.15 mL allergy 01/02/2020 0.15 mL allergy 01/09/2020 0.20 mL allergy 01/09/2020 0.20 mL allergy 01/16/2020 0.25 mg allergy 01/16/2020 0.25 mg allergy 01/26/2020 0.30 mL allergy 01/26/2020 0.30 mL allergy 02/04/2020 0.35 mL allergy 02/04/2020 0.35 mL allergy 02/11/2020 0.40 mL allergy 02/11/2020 0.40 mL allergy 02/24/2020 allergy 02/24/2020 allergy 03/10/2020 0.50 ug allergy 03/10/2020 0.50 mg allergy 03/24/2020 allergy 03/24/2020 allergy 04/07/2020 0.10 mg allergy 04/07/2020 0.10 mg allergy 04/20/2020 0.15 mL allergy 04/20/2020 0.15 mL allergy 04/26/2020 0.20 mg allergy 04/26/2020 0.20 mg allergy 05/07/2020 allergy 05/07/2020 0.25 mL allergy 05/17/2020 0.30 mL allergy 05/17/2020 0.30 mL allergy 05/27/2020 0.35 mL allergy 05/27/2020 0.35 mL allergy 06/04/2020 0.40 mL allergy 06/04/2020 0.40 mL allergy 06/10/2020 0.45 mL allergy 06/10/2020 0.45 mL allergy 06/18/2020 0.5 mL allergy 06/18/2020 0.5 mL allergy 06/26/2020 0.05 mL allergy 06/26/2020 0.05 mL allergy 07/09/2020 0.10 mL allergy 07/09/2020 0.10 mL allergy 07/20/2020 0.15 mL allergy 07/20/2020 0.15 mL Medical (General) History Medical History History ICD Code Hypothyroidism Allergic Rhinitis Depression Herpes Labialis Surgical History Surgery Date(Month/Year) Hospitalization History Reason Date(Month/Year) Childhood - Bronchitis
--- OUTSIDE RECORDS SUMMARY | 2025-05-01 08:52 | XMS_ITS | Clinical Summary ---
Author Organization [facility] Address [address] [place] [address] Care Team Providers Care Filling And Stapling Machine Operator Name Role Phone Farnaz Clark DDS Unavailable + Wisam Smith I Unavailable Unavaila ble Allergies Active Allergy Reactions Criticality Noted Date Comments Cefaclor Unknown - Patient st ates they do not know rxn details Low 07/01/2018 Medications buPROPion XL (Wellbutrin XL) 300 MG 24 hr tablet bupropion HCl XL 300 mg 24 hr tablet, extended release Active cetirizine (ZyrTEC) 10 MG tablet 2 Active fluticasone (Flonase) 50 MCG/ACT nasal spray 2 Active Synthroid 50 MCG tablet 2 Active loratadine (Claritin) 10 MG tablet Take 10 mg by mouth 1 (one) time each day. 2 Active montelukast (Singulair) 10 MG tablet 2 Active Ubrelvy 100 MG tablet TAKE 1 TABLET BY MOUTH ONCE, MAY REPEAT DOSE IN 2 HOURS IF NEEDED 2 Active Social History Tobacco Use Types Packs/Day Years Used Date Smoking Tobacco: Never Assessed Sex and Gender Information Value Date Recorded Sex Assigned at Not on file Legal Sex Male 11:24 AM EDT Gender Identity Not on file Sexual Orientation Not on file Last Filed Vital Signs Vital Sign Reading Time Taken Comments Blood Pressure 123/74 12/22/2022 12:01 PM EST Pulse 60 12/22/2022 12:01 PM EST Temperature 36.1 C (97 F) 12/22/2022 12:01 PM EST Respiratory Rate - - Oxygen Saturation 98% 12/22/2022 12:01 PM EST Inhaled Oxygen Concentration - - Weight 123 kg (272 lb) 12/22/2022 12:01 PM EST Height 177.8 cm (5' 10 ) 12/22/2022 12:01 PM EST Body Mass Index 39.03 12/22/2022 12:01 PM EST Plan of Treatment Health Maintenance Due Date Last Done Comments [facility]-Depression Screening 1992 [facility]-HIV Screening 1992 [facility]-Hepatitis C Screening 1992 [facility]-/Child/Adol SDOH Screenings 1992 [id number] Vaccine (#1) 1997 [facility]-Varicella Vaccines (1 of 2 - 13+ 2-dose series) 2005 HPV Vaccines (1 - Male 3-dos e series) 2007 [facility]- SDOH Screenings 2010 [facility]-Adult SDOH Screenings 2010 [facility]-Hepatitis B Vaccines (1 of 3 - 19+ 3-dose series) 2011 [facility]-Influenza Vaccine (Seaso n Ended) 2025 [facility]-DTaP,Tdap,and Td Vaccine s (3 - Td or Tdap) 04/01/2029 04/01/2019, 05/14/2007 [facility]-Zoster Vaccines (1 of 2) 2042 [facility]-Hepatitis A Vaccines Aged Out 019, 04/12/2018 No longer eligible based on patient's age to complete this topic [facility]-Obesity Intervention Completed 023, 08/14/2022, 07/24/2022 [facility]-HIB Vaccines Aged Out No longer e ligible based on patient's age to complete this topic [facility]-IPV Vaccines Aged Out No longer e ligible based on patient's age to complete this topic [facility]-Pneumococcal Vaccine: Pediatrics (0 to 5 Years) and At-Risk Patients (6 to 49 Years) Aged Out No longer eligible b ased on patient's age to complete this topic [facility]-Rotavirus Vaccines Aged Out No lo nger eligible based on patient's age to complete this topic Insurance [id number] [place] [address] [employer]ANY Care Teams Filling And Stapling Machine Operator Relationship Specialty Start Date End Date Farnaz Clark DDS [address] [place] [id number] Dentist Dentist 12/22/22 Wisam Smith I Dentist Dental Sausage Maker 12/22/22
--- OUTSIDE RECORDS SUMMARY | 2025-05-01 08:53 | XMS_ITS | Clinical Summary ---
Author Organization [facility] Address [address] [place] [id number] Phone [email or web address] Care Team Providers Care Windscreen Fitter Name Role Phone Artem Lopez MD Primary Care Provider [phone] Allergies Active Allergy Reactions Criticality Noted Date Comments Cefaclor 07/01/2018 Medications levothyroxine (SYNTHROID, LEVOTHROID) 50 MCG tablet 8 Active famciclovir (FAMVIR) 500 MG tablet 8 Active fluticasone (FLONASE) 50 MCG/ACT nasal spray 8 Active EQ EYE ITCH RELIEF 0.025 % ophthalmic solution INSTILL 1 DROP INTO EACH EYE 2 TO 3 TIMES DAILY NEEDED 0 Active buPROPion XL (WELLBUTRIN XL) 300 MG 24 hr tablet bupropion HCl XL 300 mg 24 hr tablet, extended release Active cetirizine (ZyrTEC) 10 MG tablet 2 Active montelukast (SINGULAIR) 10 MG tablet 2 Active Ubrelvy 100 MG tablet TAKE ONE TABLET BY MOUTH AT ONSET OF MIGRAINE. IF SYMPTOMS PERSIST, A SECOND DOSE MAY BE TAKEN IN 2 HOURS. DO NOT EXCEED 2 DOSES IN A 24 HOUR PERIOD Active Active Problems No known active problems Social History Tobacco Use Types Packs/Day Years Used Date Smoking Tobacco: Some Days E-Cigarettes Smokeless Tobacco: Current Tobacco Cessation:Ready to Q uit: Not Asked; Counseling Given: Not Answered Intimate Partner Violence Answer Date R ecorded Insults You Not on file 02/15/2021 Threatens You Not on file 02/15/2021 Screams at You Not on file 02/15/2021 Physically Hurt Not on file 02/15/2021 Intimate Partner Violence Score Not on file 02/15/2021 Depression Answer Date Recorded PHQ Total Score 0 07/16/2024 Stress Answer Date Recorded Stress in your Life Not on file 09/08/2024 Dealing with Stress 3 09/08/2024 Sex and Gender Information Value Date Recorded Sex Assigned at Male 07/15/2024 3:26 PM CDT Legal Sex Male 8:44 AM CDT Gender Identity Male 07/15/2024 3:26 PM CDT Sexual Orientation Not on file Last Filed Vital Signs Vital Sign Reading Time Taken Comments Blood Pressure 128/82 03/03/2025 6:20 AM EDT Pulse 82 03/03/2025 6:20 AM EDT Temperature 36.7 C (98 F) 03/03/2025 6:20 AM EDT Respiratory Rate 18 03/03/2025 6:20 AM EDT Oxygen Saturation 97% 03/03/2025 6:20 AM EDT Inhaled Oxygen Concentration - - Weight 118 kg (260 lb) 03/03/2025 6:20 AM EDT Height 175.3 cm (5' 9 ) 03/03/2025 6:20 AM EDT Body Mass Index 38.4 03/03/2025 6:20 AM EDT Plan of Treatment Health Maintenance Due Date Last Done Comments Dental Cleaning/Exam 1992 HIV Screening 1992 Hepatitis C Screening 1992 Hep B Infection Screening - Triple Screen 2010 Hepatitis B Immunization (1 of 3 - 19+ 3-dose series) 2011 Pneumococcal: Ped (0 to 5 Yrs) and At-Risk Member (6 to 64 Yrs) (1 of 2 - PCV) 2011 Annual Preventive Exam 01/10/2024 , 07/01/2018 Covid-19 Immunization (1 - season) 2024 Influenza Immunization (Season Ended) 2025 Tetanus Diphtheria and Pertussis Immunization (3 - Td or Tdap) 04/01/2029 04/01/2019, 05/14/2007 Hepatitis A Immunization Aged Out 019, 04/12/2018 No longer eligible based on patient's age to complete this topic HIB Immunization Aged Out No longer e ligible based on patient's age to complete this topic HPV Immunization Aged Out No longer e ligible based on patient's age to complete this topic Polio Immunization Aged Out No longer eligible based on patient's age to complete this topic Varicella Immunization Aged Out No lo nger eligible based on patient's age to complete this topic Procedures Procedure Name Priority Date/Time Associated Diagnosis Comments SPIROMETRY WITHOUT BRONCHODILATOR Routine 03/03/2025 6:29 AM EDT Encounter for respiratory clearance examination from Last 3 Months Results * Spirometry, Complete CPT 71947 (03/03/2025 6:29 AM EDT) FVC 5.41 liters Comment:106% FEV1 4.33 liters Comment:104% FEV1/FVC 85% % Comment:105% us Alida POND PFT ORDERABLES Final Result from Last 3 Months Insurance OPT OUT NO COPAY NB Care Teams Windscreen Fitter Relationship Specialty Start Date End Date Artem Lopez MD [address] [facility] [address] [place] [address] PCP - General 03/02/25
[2025-05-01 09:10] LABS: Basophils # 0.1 K/mm3 (0-0.2); Basophils % 0.3 % (0.1-2.0); Eosinophils # 0.2 Kmm3 (0.0-0.4); Hemoglobin 15.5 g/dL (14.1-18.0); Immature Granulocytes # 0.06 10^3uL; Immature Granulocytes % 0.4 %; Lymphocytes # 4.4 K/mm3 (0.7-4.5); Mean Corpuscular HGB Conc 34.4 g/dL (31.8-35.4); Mean Corpuscular Hemoglobin 28.8 pg (27.0-31.2); Mean Corpuscular Volume 83.5 fl (80-94); Mean Platelet Volume 8.3 fl (7.4-10.4); Monocytes # 1.2 K/mm3 (0.1-1.0); Monocytes % 7.6 % (1.7-9.3); Neutrophils # 9.4 K/mm3 (1.8-7.8); Neutrophils % 61.7 % (37.0-80.0); Nucleated Red Blood Cells # 0 10^3/uL; Nucleated Red Blood Cells % 0 %; Platelet Count 328 K/mm3 (142-424); Red Blood Count 5.39 M/mm3 (4.60-6.20); Red Cell Distribution Width 12.7 % (11.5-17.5); Red Cell Distribution Width-SD 38.4 fL; White Blood Count 15.2 K/mm3 (4.8-10.8)
[2025-05-01 09:14] LABS: Albumin Level 4.7 g/dl (3.5-5.0); Chloride 99 mmol/L (98-107); Potassium 3.8 mmoL/L (3.5-5.1); Sodium 140 mmol/L (136-145)
[2025-05-01 09:17] LABS: Alanine Aminotransferase 21 U/L (12-78); Albumin/Globulin Ratio 1.4 (1.1-1.8); Alkaline Phosphatase 76 U/L (38-126); Anion Gap 14.8 mEq/L (5-15); Aspartate Amino Transferase 23 U/L (17-59); Bilirubin,Total 0.4 mg/dl (0.2-1.3); Blood Urea Nitrogen 14 mg/dl (9-20); Carbon Dioxide 30 mmol/L (22.0-30.0); Estimated Glomerular Filt Rate 70 ml/min (>60); GFR (African American) 84 ML/MIN (>60); Globulin 3.3 g/dL (1.3-3.2)
[2025-05-01 09:18] LABS: Calcium 9.1 mg/dl (8.4-10.2); Glucose 86 mg/dl (74-100)
== END 2025-05-01 23:59 | disposition home or self-care (01) ==
LOC: PREOP 08:49
PROVIDERS: PCP Family Medicine; Visit Provider Surgery
DX: Z01.812 Encounter for preprocedural laboratory examination (principal); K80.20 Calculus of gallbladder without cholecystitis without obstruction
CPT/HCPCS: 80053; 85025

== ENCOUNTER 2025-05-14 06:01 | Day surgery (SDC) | payer BC, SELFPAY ==
[2025-05-01 13:34] VITALS: BMI 38.4
[2025-05-14] VITALS (11 sets, daily range): BP systolic 119–162; BP diastolic 60–102; PULSE 72–96; RESP 16–24; TEMP 36.3–38; O2SAT 95–99
--- NOTE | 2025-05-14 06:30 | EXP.GEN.HP ---
HPI HPI HPI: This is a 35-year-old gentleman who presents for laparoscopic cholecystectomy. Office visit note dated March 18, 2025 forwarded below. The patient reports no changes to his overall health since prior evaluation. No fevers. Forwarded from office visit note dated March 18, 2025: This is a 35-year-old gentleman seen in consultation from his primary care provider for evaluation of gallbladder disease. He has a long history of intermittent pain in the epigastric region and right upper quadrant. He was evaluated in the emergency department in July of last year at which time he was diagnosed with symptomatic cholelithiasis versus calculus cholecystitis. He chose to hold off on surgery at first . Emergency department evaluation dated July 20, [address] of abdomen/pelvis dated July 20, 2024 reviewed. Cholelithiasis without evidence of acute cholecystitis noted. Diverticulosis without evidence of diverticulitis noted. Abdominal ultrasound dated July 25, 2024 reviewed. A 2 cm gallstone without evidence of wall thickening noted. CBC dated July 20, 2024 reviewed. White blood cell count 12.6. Hemoglobin 16.6. Platelet count 343. CMP dated July 20, 2024 reviewed. Potassium, creatinine, and LFTs normal. [facility] Disclaimer: The information contained in this section may have been updated after the patient was seen, as this information can be updated by other users. Medical History Seasonal allergies Thyroid disease Migraine Depression Anxiety TITA (obstructive sleep apnea) Treated with oral appliance (currently at 80%, [facility]), occasional mild brief snoring, denies excessive daytime sleepiness Surgical History Hx of LASIK Family History Other Hypertension Migraine Social History (Updated 05/01/25 @ 08:59 by Gilles Santana RN) Smoking Status: Current every day smoker tobacco type: e-cigarettes alcohol intake: never substance use type: denies use current occupational status: employed Travel in the last 8 weeks?: None household members: spouse and children housing: house Have you lived/traveled outside US in past 30 days?: No Contact w/someone who lives/traveled outside US past 30 days?: No Exposure to someone with infectious disease in past 14 days?: No Do you have a fever (greater than 100.4 F or 38 C)?: No Have you tested positive for COVID-19?: No Exposed to someone with COVID-19 in past 14 days?: No Do you have a sore throat?: No Do you have a cough?: No Do you have any weakness?: No Do you have any diarrhea?: No Are you experiencing any unusual bleeding?: No Do you have any muscle aches/pain?: No Do you have any abdominal pain?: No Are you experiencing loss of taste or smell?: No Other Medical History Have you received the Pneumonia Vaccine: No Review of Systems Review of Systems Review of systems:: pertinent systems reviewed and negative unless documented below *Gastrointestinal Gastrointestinal: Reports as per [facility] Meds Home Medications and Allergies Home Medications ?Medication ?Instructions ?Recorded ?Confirmed ?Type levothyroxine 50 mcg tablet 50 mcg PO DAILY 12/22/20 05/01/25 History bupropion HCl 300 mg 24 hr tablet, 300 mg PO DAILY 08/03/21 05/01/25 History extended release fluticasone propionate 50 1 spray intranasal DAILY 08/03/21 05/01/25 History mcg/actuation nasal spray,suspension montelukast 10 mg tablet 10 mg PO DAILY 03/15/22 05/01/25 History olopatadine 0.7 % eye drops 1 drp Eye-Both DAILY 12/07/22 05/01/25 History (Pataday Once Daily Relief) ubrogepant 100 mg tablet (Ubrelvy) 100 mg PO .COMPLEX PRN Migraine 07/11/23 05/01/25 Rx #16 tabs semaglutide (weight loss) 1 mg/0.5 1 mg SQ WEEKLY 05/01/25 05/01/25 History mL subcutaneous pen injector (Wegovy) New Prescriptions to Start Prescriptions: Allergies Allergy/AdvReac Type Severity Reaction Status Date / Time cefaclor (From [facility]) Allergy Mild Verified 03/18/25 15:04 Exam Constitutional Constitutional: no acute distress *Routine HEENT Exam Head: Present normocephalic Eye: Present EOMI ENT: Present mucous membranes moist *Routine Neck Exam Neck: Present full ROM *Routine Respiratory Exam Respiratory: Absent respiratory distress *Routine Cardiovascular Exam Cardiovascular: Absent tachycardia *Routine Abdominal Exam Abdominal: Present soft *Routine Rectal Exam Rectal:: deferred *Routine Genitalia Exam Genitalia:: deferred *Routine Extremities Exam Extremities: Present full ROM *Routine Skin Exam Skin: Absent erythema *Routine Neurological Exam Neurological: Present alert Assessment and Plan *Assessment and plan (1) Cholelithiasis: Status: Acute Qualifiers: Biliary obstruction: without biliary obstruction Cholecystitis presence: without cholecystitis Cholelithiasis location: gallbladder Qualified Code(s): K80.20 - Calculus of gallbladder without cholecystitis without obstruction Category: Medical Code(s): K80.20 - Calculus of gallbladder without cholecystitis without obstruction Plan: Laparoscopic cholecystectomy today I have discussed the risks and benefits including, but not limited to: Bleeding Infection Damage to surrounding tissue Inherent risks of sedation The patient agrees to proceed.
[2025-05-14] MEDS: 0.9 % SODIUM CHLORIDE 1000ML 1,000 ML 25 ML IV (06:33)
[2025-05-14] MEDS: CLINDAMYCIN PHOSPHATE/D5W 900 MG/50 ML PIGGYBACK 100 MG IV (06:56)
--- NOTE | 2025-05-14 08:02 | P.OP_ITS ---
Date of procedure: 05/14/25 Pre-op Diagnosis:: Symptomatic cholelithiasis Post-op Diagnosis:: Chronic calculus cholecystitis Procedure performed:: Laparoscopic cholecystectomy Surgeon:: Sami Angel MD DEPARTMENT OPERATIONS MANAGER:: [facility] Anesthesia: GETA Estimated blood loss (mL): 15 Operative findings:: Significant pericholecystic adhesions Fairly severe infundibular thickening Operative note:: After informed consent was obtained, the patient was taken to the operating room and placed in the supine position. General anesthesia was induced and the abdomen was prepped and draped in a sterile fashion. After infiltration with local anesthetic an supraumbilical incision was made. A Veress needle was placed in position. The abdomen was insufflated. A 5 mm optical trocar was placed in position. Under direct visualization, a 12 mm trocar was placed in the subxiphoid position and 2 additional 5 mm trocars were placed in the right upper quadrant. The gallbladder was elevated up and over the liver margin. The tissue around the cystic duct was carefully dissected. 3 clips were placed proximally and the duct was transected with harmonic marques. Harmonic marques were then utilized to dissect the gallbladder away from the liver margin with careful attention to the control of the cystic artery. The gallbladder was placed in a retrieval bag and removed through the subxiphoid trocar site. The right upper quadrant was thoroughly irrigated. No active bleeding or bile leak was noted. Fascia at the subxiphoid trocar site was reapproximated utilizing 0 Ethibond. The remaining trocars were removed. All wounds were irrigated and skin was closed with 4-0 Monocryl in a subcuticular fashion. Steri-Strips were applied. The patient's anesthetic agents were reversed and extubation was completed prior to transfer to recovery in stable condition. Condition: stable Disposition: PACU Specimens:: Gallbladder and contents Complications:: No immediate
--- NOTE | 2025-05-14 08:34 | EXP.ANES.CKL ---
[facility] Disclaimer: The information contained in this section may have been updated after the patient was seen, as this information can be updated by other users. Medical History Seasonal allergies Thyroid disease Migraine Depression Anxiety TITA (obstructive sleep apnea) Treated with oral appliance (currently at 80%, [facility]), occasional mild brief snoring, denies excessive daytime sleepiness Surgical History Hx of LASIK Family History Other Hypertension Migraine Social History Smoking Status: Current every day smoker tobacco type: e-cigarettes alcohol intake: never substance use type: denies use current occupational status: employed Travel in the last 8 weeks?: None household members: spouse and children housing: house Have you lived/traveled outside US in past 30 days?: No Contact w/someone who lives/traveled outside US past 30 days?: No Exposure to someone with infectious disease in past 14 days?: No Do you have a fever (greater than 100.4 F or 38 C)?: No Have you tested positive for COVID-19?: No Exposed to someone with COVID-19 in past 14 days?: No Do you have a sore throat?: No Do you have a cough?: No Do you have any weakness?: No Do you have any diarrhea?: No Are you experiencing any unusual bleeding?: No Do you have any muscle aches/pain?: No Do you have any abdominal pain?: No Are you experiencing loss of taste or smell?: No [facility] Anesthesia Checklist Patient Identification Patient Identification: Arm Band and Family Structural Data Admitted From: Home Planned Operative Procedure/s: Lap Maggie Consent for Planned Operative Procedure(s) Verified: Yes Verified Documents: Surgical Consent and History and Physical NPO Status Verified Time NPO: 00:00 Additional verifications Patient : No Anesthesia Reactions: No Hx Blood Transfusions: No Blood Transfusion Reaction: No Cephalosporin Allergy: No Airway Assessment Mallampati Score:: Class I C-Spine Mobility Assessed: Yes TMJ Mobility Assessed: Yes Dentition: Good Dentition Neurological Assessment Level of Consciousness: Awake, Alert, Appropriate and Follows Commands Hx Seizures: No Numbness or tingling in extremities: No Anesthesia Plan Anesthesia Risk discussed: Yes ASA Class: II Anesthesia Type: General Preoperative Comments Pre-Operative Comments: First general anesthesia ever.
--- NOTE | 2025-05-14 08:37 | P.PNANES_ITS ---
[facility] Anesthesia Record Part I Anesthesia Record I Intake, IV Amount: 950 Hydration: Adequate Estimated blood loss (mL): 10 Urine output (mL): 0 Blood Products used (#): none Blood Pressure: 136/79 SaO2: 95 Pulse Rate: 85 Airway Patency: Patent Respiratory Rate: 24 Temperature: 99.1 F Patient is:: Drowsy and Stable Stable to PACU at:: 08:30 Comments:: Awoke combative. calm awakening after two 100 mg injections of propofol.
[2025-05-14] MEDS: MEPERIDINE 50MG/ML 1ML SYRINGE 50 MG (08:45)
--- NOTE | 2025-05-14 12:22 | EXP.ANES.II ---
[facility] Anesthesia Record Part II Anesthesia Record Part II Discharge Time: 09:00 Destination: Surgical Day Care (OP Surgery) PACU nurse assessment reviewed?: Yes Patient Condition:: Good Anesthesia Complications:: None Swallowing reflex intact?: Yes Airway Patency: Patent Cyanosis?: No Blood Pressure: 131/71 SaO2: 98 Respiratory Rate: 16 Pulse Rate: 72 Temperature: 99.1 F Mental Status: Alert & Oriented Pain level:: 0 Nausea and/or vomitting:: None Intake, IV Amount: 0 Hydration: Adequate
== END 2025-05-14 09:42 | disposition home or self-care (01) ==
PROVIDERS: PCP Family Medicine; Visit Provider Surgery
PROC: 0FT44ZZ Resection of Gallbladder, Percutaneous Endoscopic Approach (ICD-10-PCS; CPT 47562; principal; 2025-05-14 07:30)
DX: K80.10 Calculus of gallbladder with chronic cholecystitis without obstruction (principal); K57.30 Diverticulosis of large intestine without perforation or abscess without bleeding; F32.A Depression, unspecified; F41.9 Anxiety disorder, unspecified; G43.909 Migraine, unspecified, not intractable, without status migrainosus; E07.9 Disorder of thyroid, unspecified; G47.33 Obstructive sleep apnea (adult) (pediatric); J30.2 Other seasonal allergic rhinitis; F17.290 Nicotine dependence, other tobacco product, uncomplicated; Z79.890 Hormone replacement therapy; Z79.899 Other long term (current) drug therapy; Z79.85 Long-term (current) use of injectable non-insulin antidiabetic drugs; Z88.1 Allergy status to other antibiotic agents
CPT/HCPCS: 47562; 96374; J0736; J1100; J2003; J2175; J2250; J2405; J2704; J3010; J7030